=== PATIENT | male | born 1990 | race Caucasian/White ===

== ENCOUNTER 2017-11-18 19:31 | Emergency (ER) | payer BC, OTHER ==
--- NOTE | 2017-11-18 19:54 | EDM.PDOC ---
ED HPI GENERAL MEDICAL PROBLEM - General Chief Complaint: Lower Extremity Injury/Pain Stated Complaint: PT HURT LT FOOT Time Seen by Provider: 11/18/17 19:42 Source of Information: Reports: Patient History Limitations: Reports: No Limitations - History of Present Illness INITIAL COMMENTS - FREE TEXT/NARRATIVE: HISTORY AND PHYSICAL: History of present illness: patient is a 27-year-old male who presents to the emergency room today with complaints of left anterior foot pain. Patient fell on the ice earlier today and now has pain to the anterior portion of the left foot. He states when he fans out his toes he does have shooting pain up the frontal foot. He denies any ankle pain. Denies any numbness or tingling. No previous history of trauma or surgeries to the affected extremity. denies hitting his head or any loss of consciousness. Review of systems: As per history of present illness and below otherwise all systems reviewed and negative. Past medical history: As per history of present illness and as reviewed below otherwise noncontributory. Surgical history: As per history of present illness and as reviewed below otherwise noncontributory. Social history: No reported history of drug or alcohol abuse. Family history: As per history of present illness and as reviewed below otherwise noncontributory. Physical exam: Gen.: Well-developed and well-nourished 27-year-old male. Alert and oriented. Nontoxic appearing and in no acute distress. HEENT: Atraumatic, normocephalic, pupils reactive, negative for conjunctival pallor or scleral icterus, mucous membranes moist, trachea midline. Lungs: Clear to auscultation, breath sounds equal bilaterally, chest nontender. Heart: S1S2, regular8 and rhythm Abdomen: Soft, nondistended, nontender. Pelvis: Stable nontender. Genitourinary: Deferred. Rectal: Deferred. Extremities: Moves all extremities per self. pain with palpation to the lateral anterior portion of the left foot, soft tissue swelling noted No erythema. Strong pedal pulses. Capillary refill less than 3 seconds. No tenderness or pain to the lateral malleolus. Achilles intact with negative for cords or calf pain. Neurovascular unremarkable. Neuro: Awake, alert, oriented. Cranial nerves II through XII unremarkable. Cerebellum unremarkable. Motor and sensory unremarkable throughout. Exam nonfocal. Patient's x-ray shows no acute fractures, mild soft tissue swelling noted. This was explained to the patient. Loki wrap and crutches for comfort. Diclofenac 50 mg one tab twice a day as needed for pain was prescribed. Dispense 20, no refill. started patient to follow-up with an orthopedic provider if he continues to have pain as he may need further evaluation. Patient voices understanding and is agreeable to sign of care. He denies any further questions at this time. Diagnostics: x-ray left foot Therapeutics: Loki wrap and crutches Impression: #1 Left foot injury #2 Contusion Plan: 1. Tylenol and/or ibuprofen as needed for pain management. Rest, ice, elevate the affected extremity. Use the Loki wrap and crutches for the next 3-5 days for comfort. 2. follow up with an orthopedic provider if you continue to have pain. Return to the ED as needed and as discussed. Definitive disposition and diagnosis as appropriate pending reevaluation and review of above. Onset: Today Duration: Hour(s): Location: Reports: Lower Extremity, Left left foot Pain Score (Numeric/FACES): 9 - Related Data Allergies Allergy/AdvReac Type Severity Reaction Status Date / Time No Known Allergies Allergy Verified 11/18/17 19:38 Home Meds: Home Meds Diclofenac Sodium [Voltaren] 50 mg PO BID PRN #20 tab.ec 11/18/17 [Rx] Past Medical History HEENT History: Reports: None Cardiovascular History: Reports: None Respiratory History: Reports: None Gastrointestinal History: Reports: None Genitourinary History: Reports: None Musculoskeletal History: Reports: None Neurological History: Reports: None Psychiatric History: Reports: None Endocrine/Metabolic History: Reports: None Hematologic History: Reports: None Immunologic History: Reports: None Oncologic (Cancer) History: Reports: None Dermatologic History: Reports: None - Infectious Disease History Infectious Disease History: Reports: Chicken Pox - Past Surgical History Head Surgeries/Procedures: Reports: None Social & Family History - Family History Family Medical History: Noncontributory - Tobacco Use Smoking Status *Q: Never Smoker - Caffeine Use Caffeine Use: Reports: Soda - Recreational Drug Use Recreational Drug Use: No Review of Systems - Review of Systems Review Of Systems: ROS reveals no pertinent complaints other than HPI. ED EXAM, GENERAL - Physical Exam Exam: See Below (See dictation) Course - Vital Signs Last Recorded V/S: Last Vital Signs Temp 99.5 F 11/18/17 19:39 Pulse 117 H 11/18/17 19:39 Resp 18 11/18/17 19:39 BP 148/89 H 11/18/17 19:39 Pulse Ox 97 11/18/17 19:39 - Orders/Labs/Meds Orders: Active Orders 24 hr Category Date Time Status Foot 2V Lt [CR] Stat Exams 11/18/17 19:48 Taken DME for Discharge [COMM] Stat Oth 11/18/17 20:40 Ordered Departure - Departure Time of Disposition: 20:39 Disposition: Home, Self-Care 01 Clinical Impression: Foot injury Qualifiers: Encounter type: initial encounter Laterality: left Qualified Code(s): S99.922A - Unspecified injury of left foot, initial encounter Contusion Qualifiers: Encounter type: initial encounter Contusion area: foot Laterality: left Qualified Code(s): S90.32XA - Contusion of left foot, initial encounter - Discharge Information Prescriptions: Diclofenac Sodium [Voltaren] 50 mg PO BID PRN #20 tab.ec PRN Reason: Pain Referrals: PCP,None [Primary Care Provider] - Forms: ED Department Discharge Additional Instructions: My general discharge The following information is given to patients seen in the emergency department who are being discharged to home. This information is to outline your options for follow-up care. We provide all patients seen in our emergency department with a follow-up referral. The need for follow-up, as well as the timing and circumstances, are variable depending upon the specifics of your emergency department visit. If you don't have a primary care physician on staff, we will provide you with a referral. We always advise you to contact your personal physician following an emergency department visit to inform them of the circumstance of the visit and for follow-up with them and/or the need for any referrals to a consulting specialist. The emergency department will also refer you to a specialist when appropriate. This referral assures that you have the opportunity for follow-up care with a specialist. All of these measure are taken in an effort to provide you with optimal care, which includes your follow-up. Under all circumstances we always encourage you to contact your private physician who remains a resource for coordinating your care. When calling for follow-up care, please make the office aware that this follow-up is from your recent emergency room visit. If for any reason you are refused follow-up, please contact the [facility] Emergency Department at and asked to speak to the emergency department charge nurse. [facility] [address], [address] [place] [address] 1. Tylenol and/or ibuprofen as needed for pain management. Rest, ice, elevate the affected extremity. Use the Loki wrap and crutches for the next 3-5 days for comfort. 2. follow up with an orthopedic provider if you continue to have pain. Return to the ED as needed and as discussed. - My Orders Last 24 Hours: My Active Orders 11/18/17 19:48 Foot 2V Lt [CR] Stat 11/18/17 20:40 DME for Discharge [COMM] Stat - Assessment/Plan Last 24 Hours: My Active Orders 11/18/17 19:48 Foot 2V Lt [CR] Stat 11/18/17 20:40 DME for Discharge [COMM] Stat
[2017-11-18 22:35] VITALS: BP 161/93
--- NOTE | 2017-11-19 10:01 | CR ---
EXAM DATE: 11/18/17 PATIENT'S AGE: 27 Patient: EFREN FLOWERS Facility: [place], [place] Site Site : [id number] Study: XRay Extremity Left [id number]/25/2018 8:06:05 PM Ordering Physician: WINNIE Final Report: Try that whole two-views of the left foot. FINDINGS: There is normal alignment. There is no acute fracture seen. Small calcaneal spur. Mild diffuse soft tissue swelling. IMPRESSION: 1. No acute fracture. Dictated by Tammy Davis MD @ Nov 18 2017 8:25PM (Electronic Signature) Report Signed by Proxy. YURI
== END 2017-11-18 22:00 | disposition home or self-care (01) ==
LOC: MW.ED 19:31
DX: S90.32XA Contusion of left foot, initial encounter (principal); W00.9XXA Unspecified fall due to ice and snow, initial encounter
CPT/HCPCS: 73620-26-LT; 73620-LT; 99283; 99284